=== PATIENT | male | born 2000 | race Caucasian/White ===

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

== ENCOUNTER 2020-06-20 16:08 | Emergency (ER) | payer SELFPAY ==
[~2020-06-20] VITALS: Ht 188 cm; Wt 120.5 kg
--- NOTE | 2020-06-20 16:53 | NUR ---
PT WANTING STD CHECK, DENIES ANY SYMPTOMS, HAS PARTNER WHO IS POSITIVE FOR GONORRHEA AND CHLAMYDIA
[2020-06-20] MEDS ORDERED: CEFTRIAXONE 250 MG ONE (17:26)
[2020-06-20] MEDS ORDERED: AZITHROMYCIN 500 MG TABLET ONE (17:26)
[2020-06-20] MEDS ORDERED: AZITHROMYCIN 500 MG TABLET PO ONE (17:30)
[2020-06-20] MEDS ORDERED: CEFTRIAXONE 250 MG IM ONE (17:30)
[2020-06-20 18:34] VITALS: BP 136/82
== END 2020-06-20 18:36 | disposition home or self-care (01) ==
LOC: ED 16:25
DX: N34.2 Other urethritis (principal); R30.0 Dysuria; Z20.2 Contact with and (suspected) exposure to infections with a predominantly sexual mode of transmission
CPT/HCPCS: 87491; 87591; 96372; 99283; J0696